=== PATIENT | male | born 1960 | race Caucasian/White ===

== ENCOUNTER 2018-01-29 13:55 | Inpatient (IN) ==
[2018-01-29] MEDS ORDERED: Clindamycin 900 MG/50 ML 900 MG/50 ML IV.SOLN IVPB ONE (14:22)
[2018-01-29] MEDS ORDERED: Ringers Solution, Lactated 1,000 ML IVC SCH ×2 (14:30→19:03)
--- NOTE | 2018-01-29 14:33 | History & Physical Report ---
Date of Encounter: 01/29/18 Time of Encounter: 14:33 24 Hour HP Update - Instructions Instructions: If the History and Physical is less than 30 days old and was completed prior to A.M. admission and or procedure and has NOT been updated on calendar day of procedure please complete this update prior to performing procedure. - Update Patient reports changes in Medical Condition: No Changes in examination, assessment, or condition: No Changes in Medication: No Preop tests/diagnostics Reviewed: Yes Surgery Remains Indicated: Yes Consent for Planned Operative Procedure(s) Verified: Yes - Pre-Operative Checklist Preoperative Checklist Indicated: No Prophylactic Antibiotic Ordered: Yes Is VTE Prophylaxis Indicated?: Yes
[2018-01-29] MEDS ORDERED: *HR* Propofol 200 MG/20 ML VIAL IVP ONE ×2 (15:02→16:31)
[2018-01-29] MEDS ORDERED: *HR* Midazolam HCl 2 MG/2 ML VIAL ONE (15:02)
[2018-01-29] MEDS ORDERED: *HR* FentaNYL (PF) 100 MCG/2 ML VIAL ONE ×2 (15:02→16:58)
--- NOTE | 2018-01-29 15:16 | Anesthesia Evaluation PreOp ---
Date of Encounter: 01/29/18 Time of Encounter: 15:15 - Past History Planned Operation: Rt TKA Cardiac History: HTN, Hyperlipidemia Pulmonary History: Denies Any Significant HX MALE INFERTILITY SPECIALIST History: Denies Any Significant HX Other Medical History: Diabetes Type II, Other ([place]) Anesthesia History: No Prior Anesthetic Complications Alcohol Use: none Drug use: none Medications and Allergies Amlodipine Besylate 10 mg PO DAILY 01/29/18 [History] Atorvastatin Calcium [Lipitor] 80 mg PO HS 01/29/18 [History] Hydrochlorothiazide [Microzide] 12.5 mg PO DAILY 01/29/18 [History] Insulin Glargine,Hum.rec.anlog [Basaglar Kwikpen U-100] 30 unit SQ HS 01/29/18 [History] Losartan Potassium 100 mg PO DAILY 01/29/18 [History] Meloxicam 15 mg PO DAILY 01/29/18 [History] Metformin HCl [Glucophage] 1,000 mg PO BID 01/29/18 [History] Omeprazole [PriLOSEC] 20 mg PO DAILY 01/29/18 [History] Pentoxifylline [TRENtal] 400 mg PO TIDWM 01/29/18 [History] glipiZIDE [Glipizide] 10 mg PO DAILY 01/29/18 [History] Allergy/AdvReac Type Severity Reaction Status Date / Time Penicillins [PCN] Allergy Hives Verified 01/29/18 14:21 - Meds/Allergy Pre-op Review Medications Reviewed: Yes Allergies Reviewed: Yes Beta Blockers on Current Med List: No Anesthesia Results - Labs Laboratory Tests 01/24/18 01/24/18 14:00 14:00 Hgb 13.3 Hct 41.2 Plt Count 262 Sodium 135 L Potassium 3.9 BUN 13 Creatinine 0.73 - Imaging EKG: report reviewed (SR) Anesthesia Exam O2 Sat Height 1.96 m Height 1.96 m Weight 168.736 kg Weight 171.004 kg O2 Sat by Pulse Oximetry 94 Vital Signs Temp Pulse Resp BP Pulse Ox 98.3 F 68 16 107/59 94 01/29/18 14:42 01/29/18 14:42 01/29/18 14:42 01/29/18 14:42 01/29/18 14:42 Height: 6'5 Weight: 372 lbs NPO (# of Hours): MN Pain Scale: 0 - HEENT Pupil (Motor): Pupils equal, EOMI Mallampati: III Teeth: Normal Oral Opening: Less than or equal to 3 - MALE INFERTILITY SPECIALIST LOC: Oriented MALE INFERTILITY SPECIALIST Motor: Normal RUE, Normal LUE, Normal RLE, Normal LLE, Normal Face MALE INFERTILITY SPECIALIST Sensory: Normal: RUE, LUE, RLE, LLE, Face - Cardiac Rhythm: Regular Murmur: None JVD: No Carotid Bruit: No - Pulmonary Breath Sounds: bilateral Clear Respiratory Effort: Symmetrical Anesthesia Assess/Plan ASA Score: 3 Level of consciousness: Cooperative Anesthetic Plan: General, Regional Nerve Block Regional Nerve Block Plan: Adductor canal, IPACK, Other (PAYTON) Autologous Blood: No Monitoring Plan: Standard Monitors Recovery Plan: PACU (Discussed GA, RA, agrees to proceed)
[2018-01-29] MEDS ORDERED: Pregabalin 75 MG CAPSULE PO ONE (15:18)
[2018-01-29] MEDS ORDERED: Acetaminophen IV 1,000 MG/100 ML INFUS..BTL IVPB ONE (15:18)
[2018-01-29] MEDS ORDERED: Celecoxib 100 MG CAPSULE PO ONE (15:19)
[2018-01-29] MEDS ORDERED: Lidocaine -MPF 2% 2 ML VIAL ONE (15:27)
[2018-01-29] MEDS: Famotidine 20 MG/2 ML VIAL IVP ONE ×2 (15:32→15:43)
[2018-01-29] MEDS ORDERED: Tetracaine/PF 20 MG/2 ML AMPUL ONE (15:55)
[2018-01-29] MEDS ORDERED: ROPIVACAINE HCL/PF 0.5% 30 ML VIAL ONE (15:55)
[2018-01-29] MEDS ORDERED: Ethanol\\Acetic Acid\\Na Ace\\Ben 1,000 ML IRRIG.SOLN IR ONE (16:11)
--- NOTE | 2018-01-29 16:19 | Discharge Summary ---
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 Qualifiers: Encounter type: subsequent encounter Qualified Code(s): T84.038D - Mechanical loosening of other internal prosthetic joint, subsequent encounter; Z96.659 - Presence of unspecified artificial knee joint (2) Status post total right knee replacement Priority: Primary Status: Acute (3) HTN (hypertension) Priority: Secondary Status: Chronic Qualifiers: Hypertension type: unspecified Qualified Code(s): I10 - Essential (primary) hypertension (4) Diabetes mellitus Priority: Secondary Status: Chronic Qualifiers: Diabetes mellitus type: other specified (including MIRELLA) Diabetes mellitus exterminator insulin use: with long-term use Diabetes mellitus complication status: with unspecified complications Qualified Code(s): E13.8 - Other specified diabetes mellitus with unspecified complications; Z79.4 - group home (current) use of insulin (5) Obesity Priority: Secondary Status: Chronic Qualifiers: Obesity type: unspecified obesity type Obesity classification: adult class 3 (BMI >= 40) Serious obesity comorbidity presence: unspecified whether serious comorbidity present Body mass index: BMI 40.0-44.9 Qualified Code(s): E66.01 - Morbid (severe) obesity due to excess calories; Z68.41 - Body mass index (BMI) 40.0-44.9, adult (6) HLD (hyperlipidemia) Priority: Secondary Status: Chronic Qualifiers: Hyperlipidemia type: unspecified Qualified Code(s): E78.5 - Hyperlipidemia, unspecified - Hospital Course Hospital course: Mr. Gold is a 57 year old male - Time Spent with Patient Total time spent providing and/or coordinating discharge services: - Discharge Medications Prescriptions: Docusate [Colace] 100 mg PO BID 5 Days #10 capsule Home Medications: Amlodipine Besylate 10 mg PO DAILY 01/29/18 [History] Aspirin Enteric Coated [Aspirin EC] 325 mg PO BID 10 Days #20 tablet. 01/29/18 [Rx] Atorvastatin Calcium [Lipitor] 80 mg PO HS 01/29/18 [History] Hydrochlorothiazide [Microzide] 12.5 mg PO DAILY 01/29/18 [History] Insulin Glargine,Hum.rec.anlog [Basaglar Kwikpen U-100] 30 unit SQ HS 01/29/18 [History] Losartan Potassium 100 mg PO DAILY 01/29/18 [History] Metformin HCl [Glucophage] 1,000 mg PO BID 01/29/18 [History] Omeprazole [PriLOSEC] 20 mg PO DAILY 01/29/18 [History] OxyCODONE Immed Rel [Roxicodone 5 MG] 5 mg PO Q6HR PRN 7 Days #28 tablet 01/29/18 [Rx] Pentoxifylline [TRENtal] 400 mg PO TIDWM 01/29/18 [History] glipiZIDE [Glipizide] 10 mg PO DAILY 01/29/18 [History] Docusate [Colace] 100 mg PO BID 5 Days #10 capsule 01/30/18 [Rx] Allergies/Adverse Reactions: Allergy/AdvReac Type Severity Reaction Status Date / Time Penicillins [PCN] Allergy Hives Verified 01/29/18 14:21 Primary care physician: Catalina Kowalski MD Labs on day of discharge: Labs from last 24 hours 01/29/18 14:38 POC Glucose 153 H - Patient Status Disposition: Transfer SNF Condition: Good - Discharge Instructions Follow Up With: Catalina Kowalski MD [Primary Care Provider] - <Deepthi Cortez - Last Filed: 01/31/18 13:13> Orders not resulted at time of discharge: Pending orders 01/29/18 15:19 US anesthesia pain block [US] Routine 01/29/18 17:00 Culture,Anaerobic [RM] Routine Culture,Wound [RM] Routine 01/29/18 17:34 Surgical Pathology [PTH] Routine Date of Encounter: 01/31/18 Time of Encounter: 12:30 - Discharge Diagnosis (1) Status post total right knee replacement Priority: Primary Status: Acute (2) 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 Qualifiers: Encounter type: subsequent encounter Qualified Code(s): T84.038D - Mechanical loosening of other internal prosthetic joint, subsequent encounter; Demian96.659 - Presence of unspecified artificial knee joint (3) Diabetes mellitus Priority: Secondary Status: Chronic Qualifiers: Diabetes mellitus type: other specified (including MIRELLA) Diabetes mellitus long-term insulin use: with long-term use Diabetes mellitus complication status: with unspecified complications Qualified Code(s): E13.8 - Other specified diabetes mellitus with unspecified complications; Z79.4 - group home (current) use of insulin (4) HLD (hyperlipidemia) Priority: Secondary Status: Chronic Qualifiers: Hyperlipidemia type: unspecified Qualified Code(s): E78.5 - Hyperlipidemia, unspecified (5) HTN (hypertension) Priority: Secondary Status: Chronic Qualifiers: Hypertension type: unspecified Qualified Code(s): I10 - Essential (primary) hypertension (6) Obesity Priority: Secondary Status: Chronic Qualifiers: Obesity type: unspecified obesity type Obesity classification: adult class 3 (BMI >= 40) Serious obesity comorbidity presence: unspecified whether serious comorbidity present Body mass index: BMI 40.0-44.9 Qualified Code(s): E66.01 - Morbid (severe) obesity due to excess calories; Z68.41 - Body mass index (BMI) 40.0-44.9, adult - Hospital Course Hospital course: Mr. Gold is a 57 year old male s/p Right revision total knee 01/29/18 with history of HTN, DM, obesity, HLD. He had uneventful hospital course and participated in therapy. He is stable for discharge. Patient seen at bedside, without complaints. A&O x 3 Afebrile, vital signs stable. Dressings c/d/i with minimal drainage - no change from yesterday. Will have dressings changed today. No calf tenderness to palpation. Labs reviewed. H/H - 10.8/33.6 stable, asymptomatic Pain control: adequate Participating in PT. All questions and concerns addressed. Educated on use of incentive spirometer. Encouraged ambulation and proper hydration. Patient educated on post-operative restrictions and post-operative care. Assessment and plan: Continue with postoperative care [facility] - Time Spent with Patient Total time spent providing and/or coordinating discharge services: Date of admission: 01/29/18 18:40 Primary care physician: Catalina Kowalski MD Consults: 01/29/18 19:03 Consult to Occupational Therapy [CONS] Routine Comment: Evaluate, develop and implement POC Reason for Consult: post knee surgery Does patient have active BEDREST order?: No Is patient medically & hemodynamically stable?: Yes Consult to Orthopedic Navigator [CONS] [CONS] Routine Consult to Physical Therapy [CONS] Routine Comment: Evaluate, develop and impliment POC Reason for Consult: post knee surgery Does patient have active BEDREST order?: No Is patient medically & hemodynamically stable?: Yes Consult to Weigher Packing [CONS] Routine Reason for SW Consult: post op joint replacement RT Post Op Consult [CONS] Routine Discharging clinician: Emilio Crane Anticipated date of discharge: 01/31/18 Labs on day of discharge: Labs from last 24 hours 01/31/18 01/31/18 01/31/18 07:23 04:55 04:55 Hgb 10.8 L Hct 33.6 L Sodium 135 L Potassium 3.8 Chloride 103 Carbon Dioxide 25 BUN 17 Creatinine 0.72 Est GFR ( Amer) > 60 Est GFR (Non-Af Amer) > 60 BUN/Creatinine Ratio 24 Glucose 200 H POC Glucose 202 H Calculated Osmolality 287 Calcium 8.0 L 01/30/18 01/30/18 01/30/18 20:06 16:05 11:56 Hgb Hct Sodium Potassium Chloride Carbon Dioxide BUN Creatinine Est GFR ( Amer) Est GFR (Non-Af Amer) BUN/Creatinine Ratio Glucose POC Glucose 226 H 191 H 210 H Calculated Osmolality Calcium 01/30/18 07:51 Hgb Hct Sodium Potassium Chloride Carbon Dioxide BUN Creatinine Est GFR ( Amer) Est GFR (Non-Af Amer) BUN/Creatinine Ratio Glucose POC Glucose 234 H Calculated Osmolality Calcium Preliminary micro results at discharge 01/29/18 17:00 Wound Culture - Preliminary Right Knee No growth. - Impressions ITS Impressions Knee X-Ray 01/29/18 09:44 IMPRESSION: Postsurgical changes from revision right total knee arthroplasty. D/ / 01/30/2018 08:28:07 Jyotsna Collado MD / adriana Interpreting Provider: Jyotsna Collado MD - Patient Status Functional capacity at discharge: uses cane/walker Overall status at discharge: patient is back to baseline - Diet and Activity Activity: as per physical therapy Diet: advance to your usual diet
[2018-01-29] MEDS ORDERED: *HR* Succinylcholine 200 MG/10 ML VIAL IVP ONE (16:31)
[2018-01-29] MEDS ORDERED: Tranexamic Acid 1,000 MG/10 ML VIAL ONE (17:04)
[2018-01-29] MEDS ORDERED: Dexamethasone 4 MG/ML VIAL ONE (17:06)
[2018-01-29] MEDS ORDERED: Ondansetron 4 MG/2 ML VIAL ONE (17:06)
[2018-01-29] MEDS ORDERED: *HR* Morphine 10 MG/ML VIAL ONE (17:10)
[2018-01-29] MEDS ORDERED: *HR* OxyCODONE Immed Rel 5 MG TABLET PO PRN (17:18)
[2018-01-29] MEDS ORDERED: Ondansetron 4 MG/2 ML VIAL IVP ONE (17:18)
--- NOTE | 2018-01-29 17:50 | Orthopedic Operative Note ---
Date of procedure: 01/29/18 Pre-op diagnosis: Aseptic loosening right total knee Post-op diagnosis: same Procedure: Procedure: Right revision total knee Estimated blood loss: 300 Hardware: Metal and polyethylene replacement. Biomet SSK femur: 75, 24 x 80 stem Tibia: 83, 16 x 80 stem Constrained Shawna: 10 Exam Under anesthesia: Full flexion and extension well-healed incision mid flexion varus valgus instability Procedural Notes: Gross loosening tibial component significant cement reaction disease. Operative procedure: The patient was brought to the operating room and placed on the operating room table. After general anesthesia was administered the operative knee was examined. Findings were noted in the exam under anesthesia. The operative extremity was prepped and draped in sterile surgical fashion. The patient received IV antibiotics prior to skin incision. A standard midline incision was made centered over the patella through the old incision. The incision was made through the skin and subcutaneous tissue. A medial parapatellar tendon approach was performed. Care was taken to preserve tissue along the medial aspect of the patella. And to protect the patella tendon. The deep MCL was released off the medial tibia. The infra patella fat pad was excised. Fluid was encountered this was normal joint fluid, Cultures were obtained and gram . Patient noted to have significant cement synovial reaction this was excised. The knee was brought into flexion the poly-was removed. The interface between the patient's femoral component and distal femur were disrupted with a osteotome and oscillating saw. Femoral component was removed removed without significant bone loss. Attention was then turned to the tibial component. The same technique was used to remove the tibial component by disrupting the interface between the patient's tibial component and the patients proximal tibia. The tibial component was loose, was removed without significant bone loss. The tibia was sized to a m 83 it was reamed up to a 16 x 80 stem Trial had good fit and fixation. The femur was sized to a 75, was reamed up to a 24 x 80 stem The finishing guide was seated and the box cut was made. The trial had good fit and fixation. Both trial components were seated and the X constrained Shawna was seated and secured. The knee had full flexion and full extension with no instability. Patella had excellent patella tracking. The trial components were removed. The knee sat for 2 minutes with a antibacterial solution. It was irrigated out with 2 L of pulse irrigation. The components were assembled on the back table, the tibia cemented first followed by the femur. The 10 constrained liner was seated and secure. The knee was brought to full extension while the cement hardened. After the cement hardened the knee was irrigated out again. The extensor mechanism was closed with a running #2 Fiberwire suture and a running #2 PDS suture. The deep tissue was irrigated and closed deep with #1 PDS suture superficially with 0 PDS suture. The skin was closed with skin dieudonne. The patient was placed in a sterile dressing and postoperative brace. They were extubated and transferred to recovery room in stable condition. Anesthesia: GETA Surgeon: Emilio Crane Was there an first assistant manager present: No Estimated blood loss (cc): 300 Condition: stable Disposition: PACU
[2018-01-29] MEDS ORDERED: *HR* Enoxaparin 30 MG/0.3 ML SYRINGE SQ SCH (18:00)
[2018-01-29] MEDS: *HR* HYDROmorphone (PF) 1 MG/ML SYRINGE IVP PRN ×2 (18:20→18:25)
[2018-01-29 18:50] LABS: Hematocrit 35.9 % (37.5-50.1)
[2018-01-29 18:52] LABS: Hemoglobin 11.7 g/dL (12.9-16.9)
[2018-01-29] MEDS ORDERED: Sennosides 8.6 MG TABLET PO PRN (19:03)
[2018-01-29] MEDS ORDERED: Naloxone 0.4 MG/ML INJ IVP PRN (19:03)
[2018-01-29] MEDS ORDERED: Temazepam 15 MG CAPSULE PO PRN (19:03)
[2018-01-29] MEDS ORDERED: *HR* OxyCODONE/APAP 5/325 TABLET PO PRN (19:03)
[2018-01-29] MEDS ORDERED: MOM Conc 10 ML UD.LIQ PO PRN (19:03)
[2018-01-29] MEDS ORDERED: Ondansetron 4 MG/2 ML VIAL IVP PRN (19:03)
--- NOTE | 2018-01-29 19:30 | Anesthesia Evaluation Post Op ---
Date of Encounter: 01/29/18 Time of Encounter: 19:28 - Vital Signs Vital Signs: Vital Signs/O2 Sat, Most Current Temp Pulse Resp BP Pulse Ox 98.5 F 63 16 126/71 93 01/29/18 19:00 01/29/18 19:00 01/29/18 19:00 01/29/18 19:00 01/29/18 19:00 - Lungs Lungs: Clear Ascult./Percussion - Airway Airway: Non-obstructed - Cardiovascular Regular Rate - Mental Status Mental Status: Alert & Oriented, Answers Appropriately - Pain Pain Scale: 0 Pain Scale used: Numeric (1 - 10) - Nausea Vomiting Nausea Vomiting: Not Present - Hydration Hydration: Ice chips - Discharge PostOp Status: Transfer Patient to floor
[2018-01-29] MEDS ORDERED: D5% in Water 1,000 ML IVC PRN (19:39)
[2018-01-29] MEDS ORDERED: Dextrose Gel 15 GM/37.5 ML TUBE PO PRN ×2 (19:39)
[2018-01-29] MEDS ORDERED: *HR* Dextrose 50 % in Water (Syg) 50 ML SYRINGE IVP PRN (19:39)
[2018-01-29] MEDS: *HR* OxyCODONE Immed Rel 5 MG TABLET PO PRN (20:12)
[2018-01-29] MEDS: *HR* Metformin 500 MG TABLET PO SCH (20:12)
[2018-01-29] MEDS: Insulin DETEMIR 100 UNIT/ML X5UNITS SQ SCH (20:13)
[2018-01-29] MEDS ORDERED: NON-FORMULARY MEDICATION 1 EACH EACH (Insulin Glargine,Hum.Rec.Anlog [Basaglar Kwikpen U-1 SQ SCH (21:00)
[2018-01-29] MEDS: Clindamycin 900 MG/50 ML 900 MG/50 ML IV.SOLN IVPB SCH (22:31)
[2018-01-30] MEDS: *HR* OxyCODONE Immed Rel 5 MG TABLET PO PRN ×5 (02:56→22:39)
[2018-01-30] MEDS: Clindamycin 900 MG/50 ML 900 MG/50 ML IV.SOLN IVPB SCH (05:47)
[2018-01-30] MEDS: *HR* Enoxaparin 30 MG/0.3 ML SYRINGE SQ SCH ×2 (05:47→17:01)
[2018-01-30 06:32] LABS: Hematocrit 35.9 % (37.5-50.1); Hemoglobin 11.6 g/dL (12.9-16.9)
--- NOTE | 2018-01-30 06:43 | Orthopedics Progress Note ---
Date of Encounter: 01/30/18 Time of Encounter: 06:43 Subjective Interval history: Patient was seen this morning doing well without complaints. Afebrile vital signs stable. Operative extremity: Neurovascularly intact Dressing clean dry and intact Calves nontender Assessment and plan: Continue with postoperative care Hematocrit 35 Gram stain no bacteria Objective Vital signs: Vital Signs Temp Pulse Resp BP Pulse Ox 01/30/18 06:41 98.7 F 76 16 120/73 95 01/30/18 05:05 98.1 F 66 18 134/76 94 01/29/18 22:30 98.6 F 68 18 121/75 94 01/29/18 21:26 98.5 F 66 16 114/71 95 01/29/18 20:17 98.8 F 62 16 150/78 94 01/29/18 19:32 98.4 F 63 16 116/76 92 01/29/18 19:00 98.5 F 63 16 126/71 93 01/29/18 18:45 98.1 F 61 16 120/73 97 01/29/18 18:35 98.1 F 61 16 104/53 95 01/29/18 18:25 64 16 123/73 97 01/29/18 18:15 64 16 145/76 94 01/29/18 18:05 98.4 F 69 16 150/86 94 01/29/18 16:40 64 124/76 96 01/29/18 16:30 64 139/79 94 01/29/18 16:16 65 128/84 95 01/29/18 16:05 68 128/84 94 01/29/18 15:55 66 131/71 94 01/29/18 14:42 98.3 F 68 16 107/59 94 Intake and Output 01/29/18 01/29/18 01/30/18 15:59 23:59 07:59 Intake Total 50 / 50 Output Total 650 / 650 325 / 325 Balance -600 / -600 -325 / -325 Intake: IV Fluids 50 / 50 Cleocin Premix 900 MG/50 ML 900 50 / 50 mg In 50 ml @ 50 mls/hr IVPB Q8H [facility] Rx#:[id number] Output: Urine 450 / 450 325 / 325 Estimated Blood Loss 200 / 200 Other: Weight 168.736 kg Blood Glucose* 153 169 - Labs CBC & BMP: 01/30/18 05:44 Labs: Abnormal lab results Hgb 11.6 g/dL (12.9-16.9) L 01/30/18 05:44 Hct 35.9 % (37.5-50.1) L 01/30/18 05:44 POC Glucose 153 mg/dL (70-99) H 01/29/18 14:38 - VTE Documentation of Mechanical Device: Venous foot pump, device Consult Discharge Plan - Plan Referrals: Catalina Kowaslki MD [Primary Care Provider] -
[2018-01-30 07:01] LABS: BUN/Creatinine Ratio 20 (6-26); Blood Urea Nitrogen 13 mg/dL (6-20); Calcium 8.3 mg/dL (8.6-10.3); Carbon Dioxide 21 mEq/L (23-29); Chloride 102 mEq/L (98-107); Glucose 227 mg/dL (70-105); Osmolality,Calculated 283 (280-300); Potassium 4.3 mEq/L (3.5-5.1); Sodium 133 mEq/L (136-145); eGFR For Non-African Americans > 60 (> 60)
[2018-01-30] MEDS: hydroCHLOROthiazide 25 MG TABLET PO SCH (08:17)
[2018-01-30] MEDS: *HR* Metformin 500 MG TABLET PO SCH ×2 (08:17→16:57)
[2018-01-30] MEDS: *HR* GlipiZIDE 5 MG TABLET PO SCH (08:17)
[2018-01-30] MEDS: amLODIPine 5 MG TABLET PO SCH (08:17)
[2018-01-30] MEDS: Insulin LISPRO 300 UNITS/3 ML VIAL SQ SCH ×3 (08:18→16:58)
--- NOTE | 2018-01-30 11:31 | Physician Discharge Referral ---
ExtendedCare Referral Info Transfer To: [facility] Provider in Charge: Dr. 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 (2) Status post total right knee replacement Priority: Primary Status: Acute (3) HTN (hypertension) Priority: Secondary Status: Chronic (4) Diabetes mellitus Priority: Secondary Status: Chronic (5) Obesity Priority: Secondary Status: Chronic (6) HLD (hyperlipidemia) Priority: Secondary Status: Chronic Expected Duration of Placement: less than 30 days Prognosis: Good Aware of Diagnosis: Patient Aware of Prognosis: Patient - Transfer Medications Prescriptions: OxyCODONE Immed Rel [Roxicodone 5 MG] 5 mg PO Q6HR PRN 7 Days #28 tablet PRN Reason: Severe Pain Aspirin Enteric Coated [Aspirin EC] 325 mg PO BID 10 Days #20 tablet.dr Cali [Colace] 100 mg PO BID 5 Days #10 capsule Home Medications: Amlodipine Besylate 10 mg PO DAILY 01/29/18 [History] Aspirin Enteric Coated [Aspirin EC] 325 mg PO BID 10 Days #20 tablet. 01/29/18 [Rx] Atorvastatin Calcium [Lipitor] 80 mg PO HS 01/29/18 [History] Hydrochlorothiazide [Microzide] 12.5 mg PO DAILY 01/29/18 [History] Insulin Glargine,Hum.rec.anlog [Basaglar Kwikpen U-100] 30 unit SQ HS 01/29/18 [History] Losartan Potassium 100 mg PO DAILY 01/29/18 [History] Metformin HCl [Glucophage] 1,000 mg PO BID 01/29/18 [History] Omeprazole [PriLOSEC] 20 mg PO DAILY 01/29/18 [History] OxyCODONE Immed Rel [Roxicodone 5 MG] 5 mg PO Q6HR PRN 7 Days #28 tablet 01/29/18 [Rx] Pentoxifylline [TRENtal] 400 mg PO TIDWM 01/29/18 [History] glipiZIDE [Glipizide] 10 mg PO DAILY 01/29/18 [History] Aspirin Enteric Coated [Aspirin EC] 325 mg PO BID 10 Days #20 tablet. 01/30/18 [Rx] Docusate [Colace] 100 mg PO BID 5 Days #10 capsule 01/30/18 [Rx] OxyCODONE Immed Rel [Roxicodone 5 MG] 5 mg PO Q6HR PRN 7 Days #28 tablet 01/30/18 [Rx] Allergies/Adverse Reactions: Allergy/AdvReac Type Severity Reaction Status Date / Time Penicillins [PCN] Allergy Hives Verified 01/29/18 14:21 - Respiratory Orders Smoking Cessation: Smoking cessation has been advised. For more information, call the [employer] Quit Line at 5-346-ZVSS-NOW. - Ancillary Orders May use pressure relief devices daily prn, May go on ESE w/family/respon republican w/meds at nurse discretion PRN, May consult with Dentist, Hoop Rolls Operator, First Grade Teacher PRN - Mobility Orders Chair, Ambulate - Rehabiliation Orders Rehab Potential: Good Rehab Orders: Evaluation for Physical Therapy, Evaluation for Occupational Therapy Other: Total Knee replacement Precautions x 6 weeks Apply cold therapy wrap 3-6x/day for 20 minutes at a time. Encourage ambulation throughout the day and incentive spirometer 10x/hour. Elevate affected extremity above heart as tolerated. Brace: Wear knee immobilizer at night x 2 weeks. - Treatments Skin tear care topically daily PRN per policy, Fleet enema rectally every other day PRN cleansing purposes List/Other: Opsite placed. Keep dressing intact until first follow up appointment. If greater than 50% saturated, notify office, remove dressing and place appropriate dressing back in place. Leave Desiree and Zipline intact. Opsite dressing is water resistant, not water-proof. OK to shower, but do not get dressing wet. - Diet Orders Regular CERTIFICATION: I certify that the transfer of the above named patient to an Extended Care Facility is necessary for the continuing treatment of the diagnosis listed. The above information is true and accurate reflection of patient's current condition. Confidential - Redisclosure prohibited without a patient's written consent.
--- NOTE | 2018-01-30 17:58 | Event Note ---
Date of Encounter: 01/30/18 Time of Encounter: 12:50 PCR - POD#1 s/p Right revision total knee 01/29/18 Patient seen at bedside, without complaints. A&O x 3 Afebrile, vital signs stable. Dressings c/d/i with minimal drainage. No calf tenderness to palpation. Labs reviewed. H/H - 11.6/35.9 stable, asymptomatic Pain control: adequate Participating in PT. All questions and concerns addressed. Educated on use of incentive spirometer. Encouraged ambulation and proper hydration. Patient educated on post-operative restrictions and post-operative care. Assessment and plan: Continue with postoperative care Discharge plan: [facility]CF - [facility], pending authorization
[2018-01-30] MEDS: Insulin DETEMIR 100 UNIT/ML X5UNITS SQ SCH (20:25)
[2018-01-30] MEDS: traMADol 50 MG TABLET PO PRN (20:26)
[2018-01-30] MEDS ORDERED: Insulin LISPRO 300 UNITS/3 ML VIAL SQ SCH (21:00)
[2018-01-31] MEDS: *HR* OxyCODONE Immed Rel 5 MG TABLET PO PRN ×2 (03:30→08:32)
[2018-01-31 05:37] LABS: Hematocrit 33.6 % (37.5-50.1); Hemoglobin 10.8 g/dL (12.9-16.9)
[2018-01-31 05:54] LABS: BUN/Creatinine Ratio 24 (6-26); Blood Urea Nitrogen 17 mg/dL (6-20); Carbon Dioxide 25 mEq/L (23-29); Chloride 103 mEq/L (98-107); Glucose 200 mg/dL (70-105); Osmolality,Calculated 287 (280-300); Potassium 3.8 mEq/L (3.5-5.1); Sodium 135 mEq/L (136-145); eGFR For Non-African Americans > 60 (> 60)
[2018-01-31] MEDS: *HR* Enoxaparin 30 MG/0.3 ML SYRINGE SQ SCH (06:11)
[2018-01-31] MEDS: traMADol 50 MG TABLET PO PRN (06:11)
[2018-01-31] MEDS ORDERED: Acetaminophen IV 1,000 MG/100 ML INFUS..BTL IVPB PRN (07:09)
--- NOTE | 2018-01-31 07:56 | Orthopedics Progress Note ---
Date of Encounter: 01/31/18 Time of Encounter: 07:55 Subjective Interval history: Patient was seen this morning plans of pain right knee. Afebrile vital signs stable. Operative extremity: Neurovascularly intact Dressing clean dry and intact Calves nontender Assessment and plan: Continue with postoperative care Hematocrit 33 Objective Vital signs: Vital Signs Temp Pulse Resp BP Pulse Ox 01/31/18 07:21 98.1 F 76 16 134/81 91 01/31/18 03:43 98.1 F 84 18 133/78 91 01/30/18 22:46 98.2 F 74 18 134/73 93 01/30/18 18:46 98.7 F 73 14 117/74 91 01/30/18 16:05 98.4 F 67 16 105/65 95 01/30/18 10:53 98.4 F 69 16 111/69 96 Intake and Output 01/30/18 01/30/18 01/31/18 15:59 23:59 07:59 Intake Total 1120 / 1120 690 / 690 300 / 300 Output Total 725 / 725 550 / 550 1250 / 1250 Balance 395 / 395 140 / 140 -950 / -950 Intake: Oral 1120 / 1120 690 / 690 300 / 300 Output: Urine 725 / 725 550 / 550 1250 / 1250 Other: Meal Lunch Dinner Percent of Meal Consumed 85% 85% Weight 168.737 kg Blood Glucose* 210 226 202 Patient Weight 01/31/18 23:59 Weight 168.737 kg - Labs CBC & BMP: 01/31/18 04:55 01/31/18 04:55 Labs: Abnormal lab results Hgb 10.8 g/dL (12.9-16.9) L 01/31/18 04:55 Hct 33.6 % (37.5-50.1) L 01/31/18 04:55 Sodium 135 mEq/L (136-145) L 01/31/18 04:55 Glucose 200 mg/dL (70-105) H 01/31/18 04:55 POC Glucose 226 mg/dL (70-99) H 01/30/18 20:06 Calcium 8.0 mg/dL (8.6-10.3) L 01/31/18 04:55 - VTE Documentation of Mechanical Device: Venous foot pump, device Consult Discharge Plan - Plan Referrals: Catalina Kowalski MD [Primary Care Provider] - Prescriptions: Aspirin Enteric Coated [Aspirin EC] 325 mg PO BID 10 Days #20 tablet. Docveronica [Colace] 100 mg PO BID 5 Days #10 capsule OxyCODONE Immed Rel [Roxicodone 5 MG] 5 mg PO Q6HR PRN 7 Days #28 tablet PRN Reason: Severe Pain
[2018-01-31] MEDS: amLODIPine 5 MG TABLET PO SCH (08:30)
[2018-01-31] MEDS: *HR* Metformin 500 MG TABLET PO SCH (08:31)
[2018-01-31] MEDS: hydroCHLOROthiazide 25 MG TABLET PO SCH (08:31)
[2018-01-31] MEDS: *HR* GlipiZIDE 5 MG TABLET PO SCH (08:31)
[2018-01-31] MEDS: Insulin LISPRO 300 UNITS/3 ML VIAL SQ SCH ×2 (08:32→12:31)
[2018-01-31 15:01] VITALS: BP 117/73
== END 2018-01-31 16:42 | DRG 467 ==
LOC: SAMDAY 13:55 → 3NENU 18:40
PROVIDERS: ADMIT Orthopaedic Surgery; ATTEND Orthopaedic Surgery

== ENCOUNTER 2019-07-26 17:27 | Inpatient (IN) ==
[2019-07-26] MEDS ORDERED: Naloxone 0.4 MG/ML INJ IVP PRN (20:40)
[2019-07-26 21:50] LABS: Basophils % 0.1 %; Eosinophils # 0.2 K/mcL (0.0-0.6); Eosinophils % 1.4 %; Hematocrit 33.6 % (37.5-50.1); Hemoglobin 10.8 g/dL (12.9-16.9); Immature Granulocytes % 1.1 % (0-4); Lymphocytes # 0.6 K/mcL (0.6-4.6); Lymphocytes % 4.3 %; Mean Corpuscular HGB Conc 32.1 g/dL (31.6-35.5); Mean Corpuscular Hemoglobin 28.3 pg (28.0-33.3); Mean Platelet Volume 9.6 fL (9.4-12.4); Monocytes % 7.6 %; Neutrophils # 11.1 K/mcL (1.6-8.9); Platelet Count 255 K/mcL (140-400); Red Blood Count 3.82 M/mcL (4.19-5.50); Red Cell Distribution Width 13.9 % (11.5-14.5); Segmented Neutrophils % 85.5 %; White Blood Count 12.9 K/mcL (4.3-11.1)
[2019-07-26] MEDS ORDERED: Dextrose Gel 15 GM/37.5 ML TUBE PO PRN ×2 (22:03)
[2019-07-26] MEDS ORDERED: D5% in Water 1,000 ML IVC PRN (22:03)
[2019-07-26] MEDS ORDERED: *HR* Dextrose 50 % in Water (Syg) 50 ML SYRINGE IVP PRN (22:03)
[2019-07-26 22:08] LABS: Calcium 7.3 mg/dL (8.6-10.3); Potassium 3.1 mEq/L (3.5-5.1)
[2019-07-27] MEDS: Insulin LISPRO 300 UNITS/3 ML VIAL SQ SCH ×5 (00:47→20:48)
[2019-07-27] MEDS ORDERED: 0.9 % Sodium Chloride 1,000 ML IVC SCH (01:30)
[2019-07-27 01:56] LABS: INR 1.3; Prothrombin Time 14.4 Seconds (9.4-12.1)
[2019-07-27 01:58] LABS: Basophils % 0.2 %; Eosinophils # 0.1 K/mcL (0.0-0.6); Eosinophils % 0.8 %; Hemoglobin 10.2 g/dL (12.9-16.9); Immature Granulocytes % 0.9 % (0-4); Lymphocytes # 0.5 K/mcL (0.6-4.6); Lymphocytes % 4.2 %; Mean Corpuscular HGB Conc 32.9 g/dL (31.6-35.5); Mean Corpuscular Volume 88.1 fL (83.0-100.0); Mean Platelet Volume 9.7 fL (9.4-12.4); Monocytes % 7.9 %; Neutrophils # 10.6 K/mcL (1.6-8.9); Platelet Count 237 K/mcL (140-400); Red Blood Count 3.52 M/mcL (4.19-5.50); Red Cell Distribution Width 13.9 % (11.5-14.5); White Blood Count 12.3 K/mcL (4.3-11.1)
[2019-07-27 01:59] LABS: Activated Partial Thrombo Time 28.8 Seconds (26.0-36.0)
[2019-07-27 02:09] LABS: Calcium 7.1 mg/dL (8.6-10.3); Potassium 3.3 mEq/L (3.5-5.1)
[2019-07-27] MEDS ORDERED: Potassium Chloride 40 MEQ, Lidocaine 1% 2 ML in 0.9 % Sodium Chloride 500 ML IVPB ONE (04:00)
[2019-07-27] MEDS: *HR* Heparin 5,000 UNIT/ML VIAL SQ SCH ×2 (05:14→17:06)
[2019-07-27] MEDS: Vancomycin 2,000 MG/520 ML IV.SOLN IVPB SCH (05:14)
[2019-07-27] MEDS: Cefepime HCl 2,000 MG in Water for inj. (sterile) 20 ML IVP SCH ×2 (05:14→17:06)
[2019-07-27] MEDS ORDERED: Cefepime HCl 1,000 MG in 0.9 % Sodium Chloride Mini Bag 100 ML IVPB SCH (06:00)
[2019-07-27] MEDS ORDERED: 0.9 % Sodium Chloride 500 ML IVC ONE (08:18)
[2019-07-27] MEDS: 0.9 % Sodium Chloride w KCl 20 MEQ/1,000 ML MLS IVC SCH ×2 (10:47→20:34)
[2019-07-27] MEDS: *HR* OxyCODONE Immed Rel 5 MG TABLET PO PRN (13:01)
[2019-07-27] MEDS: Ipratropium/Albuterol Neb 3 ML IH PRN ×2 (17:42→23:42)
[2019-07-27] MEDS: Insulin DETEMIR 100 UNIT/ML X5UNITS SQ SCH (20:35)
[2019-07-28 01:44] LABS: Basophils % 0.4 %; Eosinophils # 0.2 K/mcL (0.0-0.6); Hematocrit 30.1 % (37.5-50.1); Hemoglobin 9.8 g/dL (12.9-16.9); Immature Granulocytes % 0.8 % (0-4); Lymphocytes % 10.5 %; Mean Corpuscular HGB Conc 32.6 g/dL (31.6-35.5); Mean Corpuscular Hemoglobin 28.5 pg (28.0-33.3); Mean Corpuscular Volume 87.5 fL (83.0-100.0); Mean Platelet Volume 9.3 fL (9.4-12.4); Monocytes % 10.9 %; Neutrophils # 7.1 K/mcL (1.6-8.9); Platelet Count 267 K/mcL (140-400); Red Blood Count 3.44 M/mcL (4.19-5.50); Red Cell Distribution Width 14.4 % (11.5-14.5); Segmented Neutrophils % 75.4 %; White Blood Count 9.4 K/mcL (4.3-11.1)
[2019-07-28 02:06] LABS: Calcium 7.4 mg/dL (8.6-10.3); Potassium 3.4 mEq/L (3.5-5.1)
[2019-07-28 05:27] LABS: Magnesium 1.6 mg/dL (1.6-2.6)
[2019-07-28] MEDS: 0.9 % Sodium Chloride w KCl 20 MEQ/1,000 ML MLS IVC SCH (06:46)
[2019-07-28] MEDS: Cefepime HCl 2,000 MG in Water for inj. (sterile) 20 ML IVP SCH ×2 (06:49→17:54)
[2019-07-28] MEDS: *HR* OxyCODONE Immed Rel 5 MG TABLET PO PRN ×2 (06:50→16:11)
[2019-07-28] MEDS: *HR* Heparin 5,000 UNIT/ML VIAL SQ SCH ×2 (06:50→17:54)
[2019-07-28] MEDS: Vancomycin 2,000 MG/520 ML IV.SOLN IVPB SCH (07:27)
[2019-07-28] MEDS: Insulin LISPRO 300 UNITS/3 ML VIAL SQ SCH ×4 (08:24→22:10)
[2019-07-28 09:36] LABS: Albumin 2.9 g/dL (3.5-5.7); Bilirubin,Direct 0.2 mg/dL (0.0-0.2); Bilirubin,Indirect 0.3 mg/dL (0.0-1.0); Bilirubin,Total 0.5 mg/dL (0.3-1.0); Total Protein 5.9 g/dL (6.4-8.9)
[2019-07-28 11:07] LABS: VBG HCO3 20 mEq/L (21-27); VBG PCO2 32 mmHg (41-51); VBG PO2 223 mmHg (25-50)
[2019-07-28] MEDS: Acetaminophen 325 MG TABLET PO PRN (12:30)
[2019-07-28 15:31] LABS: Acinetobacter baumannii by PCR Not Detected (Not Detect); Candida albicans by PCR Not Detected (Not Detect); Candida glabrata by PCR Not Detected (Not Detect); Candida krusei by PCR Not Detected (Not Detect); Candida parapsilosis by PCR Not Detected (Not Detect); Candida tropicalis by PCR Not Detected (Not Detect); Enterobacter cloacae Cmplx PCR Not Detected (Not Detect); Enterobacteriaceae by PCR Not Detected (Not Detect); Enterococcus by PCR Not Detected (Not Detect); Escherichia coli by PCR Not Detected (Not Detect); Klebsiella oxytoca by PCR Not Detected (Not Detect); Klebsiella pneumoniae by PCR Not Detected (Not Detect); Proteus by PCR Not Detected (Not Detect); Pseudomonas aeruginosa by PCR Not Detected (Not Detect); Serratia marcescens by PCR Not Detected (Not Detect); Staphylococcus aureus by PCR DETECTED (Not Detect); Streptococcus agalactiae(B)PCR Not Detected (Not Detect); Streptococcus by PCR Not Detected (Not Detect); Streptococcus pneumoniae PCR Not Detected (Not Detect); Streptococcus pyogenes (A) PCR Not Detected (Not Detect); mecA Methicillin-Resist Gene Not Detected (Not Detect)
[2019-07-28] MEDS ORDERED: Calcium Gluconate 1gm/50mL 1 GM/50 ML BAG IVPB ONE (15:37)
[2019-07-28 17:58] LABS: Adenovirus Not Detected (Not Detect); Bordetella Pertussis Not Detected (Not Detect); Chlamydophila pneumoniae Not Detected (Not Detect); Coronavirus 229E Not Detected (Not Detect); Coronavirus HKU1 Not Detected (Not Detect); Coronavirus NL63 Not Detected (Not Detect); Coronavirus OC43 Not Detected (Not Detect); Human Metapneumovirus Not Detected (Not Detect); Human Rhinovirus/Enterovirus Not Detected (Not Detect); Influenza A Subtype 2009 H1 Not Detected (Not Detect); Influenza B Not Detected (Not Detect); Mycoplasma pneumoniae Not Detected (Not Detect); Parainfluenza Virus 1 Not Detected (Not Detect); Parainfluenza Virus 2 Not Detected (Not Detect); Parainfluenza Virus 3 Not Detected (Not Detect); Parainfluenza Virus 4 Not Detected (Not Detect); Respiratory Syncytial Virus Not Detected (Not Detect)
[2019-07-28] MEDS: Insulin DETEMIR 100 UNIT/ML X5UNITS SQ SCH (22:09)
[2019-07-29] MEDS ORDERED: Ondansetron 4 MG/2 ML VIAL IVP PRN (00:11)
[2019-07-29 05:39] LABS: Hematocrit 32.6 % (37.5-50.1); Hemoglobin 10.6 g/dL (12.9-16.9); Mean Corpuscular HGB Conc 32.5 g/dL (31.6-35.5); Mean Corpuscular Volume 89.1 fL (83.0-100.0); Mean Platelet Volume 9.4 fL (9.4-12.4); Platelet Count 293 K/mcL (140-400); Red Blood Count 3.66 M/mcL (4.19-5.50); Red Cell Distribution Width 14.6 % (11.5-14.5); White Blood Count 10.3 K/mcL (4.3-11.1)
[2019-07-29 05:48] LABS: BUN/Creatinine Ratio 24 (6-26); Blood Urea Nitrogen 24 mg/dL (8-23); Calcium 8.4 mg/dL (8.6-10.3); Carbon Dioxide 21 mEq/L (23-29); Chloride 106 mEq/L (98-107); Glucose 190 mg/dL (70-105); Magnesium 1.8 mg/dL (1.6-2.6); Osmolality,Calculated 287 (280-300); Phosphorous 2.8 mg/dL (2.7-4.5); Potassium 4.2 mEq/L (3.5-5.1); Sodium 134 mEq/L (136-145); eGFR For African Americans > 60 (> 60); eGFR For Non-African Americans > 60 (> 60)
[2019-07-29 05:51] LABS: Albumin 2.8 g/dL (3.5-5.7); Albumin/Globulin Ratio 0.9 (1.1-2.2); Bilirubin,Direct 0.2 mg/dL (0.0-0.2); Bilirubin,Indirect 0.5 mg/dL (0.0-1.0); Bilirubin,Total 0.7 mg/dL (0.3-1.0); Globulin 3.2 g/dL (2.4-3.5)
[2019-07-29] MEDS: *HR* Heparin 5,000 UNIT/ML VIAL SQ SCH ×2 (06:20→16:41)
[2019-07-29] MEDS: Cefepime HCl 2,000 MG in Water for inj. (sterile) 20 ML IVP SCH (06:20)
[2019-07-29] MEDS: *HR* OxyCODONE Immed Rel 5 MG TABLET PO PRN ×3 (06:22→18:30)
[2019-07-29] MEDS: Vancomycin 1,500 MG/265 ML IV.SOLN IVPB SCH ×2 (07:22→16:42)
[2019-07-29] MEDS: Insulin LISPRO 300 UNITS/3 ML VIAL SQ SCH ×4 (08:30→21:54)
[2019-07-29] MEDS ORDERED: Perflutren Lipid Microsphere 1.3 ML in 0.9 % Sodium Chloride 8.7 ML IVP ONE (09:09)
[2019-07-29] MEDS ORDERED: Cefepime HCl 2,000 MG in Water for inj. (sterile) 20 ML IVP SCH (16:00)
[2019-07-29] MEDS: Insulin DETEMIR 100 UNIT/ML X5UNITS SQ SCH (22:53)
[2019-07-30] MEDS: *HR* OxyCODONE Immed Rel 5 MG TABLET PO PRN ×4 (00:25→21:25)
[2019-07-30] MEDS ORDERED: Cefepime HCl 2,000 MG in Water for inj. (sterile) 20 ML IVP SCH (04:15)
[2019-07-30] MEDS: *HR* Heparin 5,000 UNIT/ML VIAL SQ SCH ×2 (06:09→16:30)
[2019-07-30] MEDS: Vancomycin 1,500 MG/265 ML IV.SOLN IVPB SCH (06:10)
[2019-07-30 06:27] LABS: Hematocrit 31.4 % (37.5-50.1); Mean Corpuscular HGB Conc 31.8 g/dL (31.6-35.5); Mean Corpuscular Hemoglobin 28.9 pg (28.0-33.3); Mean Corpuscular Volume 90.8 fL (83.0-100.0); Mean Platelet Volume 9.5 fL (9.4-12.4); Platelet Count 315 K/mcL (140-400); Red Blood Count 3.46 M/mcL (4.19-5.50); Red Cell Distribution Width 14.6 % (11.5-14.5); White Blood Count 9.5 K/mcL (4.3-11.1)
[2019-07-30 06:47] LABS: BUN/Creatinine Ratio 22 (6-26); Blood Urea Nitrogen 21 mg/dL (8-23); Calcium 8.4 mg/dL (8.6-10.3); Carbon Dioxide 24 mEq/L (23-29); Chloride 104 mEq/L (98-107); Glucose 187 mg/dL (70-105); Osmolality,Calculated 288 (280-300); Potassium 4.1 mEq/L (3.5-5.1); Sodium 135 mEq/L (136-145); eGFR For African Americans > 60 (> 60); eGFR For Non-African Americans > 60 (> 60)
[2019-07-30] MEDS: Insulin LISPRO 300 UNITS/3 ML VIAL SQ SCH ×4 (09:29→21:25)
[2019-07-30] MEDS ORDERED: Aminoglycoside Consult 1 EACH MC ONE (10:10)
[2019-07-30] MEDS ORDERED: Isovue-370 500 ML BOTTLE IVP ONE (11:07)
[2019-07-30] MEDS: ceFAZolin 2,000 MG in 0.9 % Sodium Chloride 100 ML IVPB SCH ×2 (15:56→23:00)
[2019-07-30] MEDS: Acetaminophen 325 MG TABLET PO PRN (16:38)
[2019-07-30] MEDS: Insulin DETEMIR 100 UNIT/ML X5UNITS SQ SCH (21:25)
[2019-07-31] MEDS: *HR* Heparin 5,000 UNIT/ML VIAL SQ SCH ×2 (05:25→17:35)
[2019-07-31] MEDS ORDERED: Total Joint Mixture (50 ml) INTRAART ONE (06:00)
[2019-07-31 06:50] LABS: Basophils # 0.1 K/mcL (0.0-0.2); Basophils % 0.4 %; Eosinophils # 0.3 K/mcL (0.0-0.6); Eosinophils % 2.8 %; Hematocrit 31.9 % (37.5-50.1); Hemoglobin 10.3 g/dL (12.9-16.9); Immature Granulocytes % 3.9 % (0-4); Lymphocytes # 1.2 K/mcL (0.6-4.6); Lymphocytes % 10.8 %; Mean Corpuscular HGB Conc 32.3 g/dL (31.6-35.5); Mean Corpuscular Volume 89.9 fL (83.0-100.0); Mean Platelet Volume 9.7 fL (9.4-12.4); Neutrophils # 8.2 K/mcL (1.6-8.9); Platelet Count 341 K/mcL (140-400); Red Blood Count 3.55 M/mcL (4.19-5.50); Red Cell Distribution Width 14.5 % (11.5-14.5); Segmented Neutrophils % 73.1 %; White Blood Count 11.3 K/mcL (4.3-11.1)
[2019-07-31 07:10] LABS: BUN/Creatinine Ratio 22 (6-26); Blood Urea Nitrogen 19 mg/dL (8-23); Calcium 8.4 mg/dL (8.6-10.3); Carbon Dioxide 23 mEq/L (23-29); Chloride 104 mEq/L (98-107); Glucose 198 mg/dL (70-105); Magnesium 1.5 mg/dL (1.6-2.6); Osmolality,Calculated 286 (280-300); Phosphorous 3.7 mg/dL (2.7-4.5); Sodium 134 mEq/L (136-145); eGFR For African Americans > 60 (> 60); eGFR For Non-African Americans > 60 (> 60)
[2019-07-31] MEDS: *HR* OxyCODONE Immed Rel 5 MG TABLET PO PRN ×3 (08:31→22:28)
[2019-07-31] MEDS: Insulin LISPRO 300 UNITS/3 ML VIAL SQ SCH ×4 (08:33→21:17)
[2019-07-31] MEDS: ceFAZolin 2,000 MG in 0.9 % Sodium Chloride 100 ML IVPB SCH ×3 (08:47→23:36)
[2019-07-31] MEDS ORDERED: Insulin DETEMIR 100 UNIT/ML X5UNITS SQ SCH (21:00)
[2019-08-01] MEDS ORDERED: Ethanol\\Acetic Acid\\Na Ace\\Ben 1,000 ML IRRIG.SOLN IR ONE ×2 (04:07)
[2019-08-01] MEDS ORDERED: *HR* Propofol 200 MG/20 ML VIAL IVP ONE ×2 (04:16→04:34)
[2019-08-01] MEDS ORDERED: *HR* Midazolam HCl 2 MG/2 ML VIAL ONE (04:16)
[2019-08-01] MEDS ORDERED: *HR* FentaNYL (PF) 100 MCG/2 ML VIAL ONE (04:16)
[2019-08-01 04:21] LABS: Hematocrit 32.6 % (37.5-50.1); Hemoglobin 10.4 g/dL (12.9-16.9); Mean Corpuscular HGB Conc 31.9 g/dL (31.6-35.5); Mean Corpuscular Hemoglobin 28.2 pg (28.0-33.3); Mean Corpuscular Volume 88.3 fL (83.0-100.0); Mean Platelet Volume 9.2 fL (9.4-12.4); Platelet Count 368 K/mcL (140-400); Red Blood Count 3.69 M/mcL (4.19-5.50); Red Cell Distribution Width 14.5 % (11.5-14.5); White Blood Count 10.6 K/mcL (4.3-11.1)
[2019-08-01] MEDS ORDERED: *HR* Rocuronium Bromide 50 MG/5 ML VIAL ONE (04:22)
[2019-08-01] MEDS ORDERED: Lidocaine -MPF 2% 2 ML VIAL ONE (04:22)
[2019-08-01] MEDS ORDERED: *HR* Succinylcholine 200 MG/10 ML VIAL IVP ONE (04:23)
[2019-08-01] MEDS ORDERED: Lidocaine HCL 4 ML Topical Solution (Laryng-O-Jet Kit Sterile Pak) TP ONE (04:26)
[2019-08-01] MEDS ORDERED: Tranexamic Acid 1,000 MG/10 ML VIAL ONE (04:33)
[2019-08-01 04:41] LABS: BUN/Creatinine Ratio 22 (6-26); Blood Urea Nitrogen 18 mg/dL (8-23); Carbon Dioxide 25 mEq/L (23-29); Chloride 102 mEq/L (98-107); Glucose 181 mg/dL (70-105); Magnesium 1.8 mg/dL (1.6-2.6); Osmolality,Calculated 286 (280-300); Phosphorous 3.9 mg/dL (2.7-4.5); Potassium 3.9 mEq/L (3.5-5.1); Sodium 135 mEq/L (136-145); eGFR For African Americans > 60 (> 60); eGFR For Non-African Americans > 60 (> 60)
[2019-08-01] MEDS ORDERED: Acetaminophen IV 1,000 MG/100 ML INFUS..BTL ONE (04:41)
[2019-08-01] MEDS ORDERED: *HR* HYDROmorphone PF 0.5 MG/0.5 ML SYRINGE IVP PRN (04:48)
[2019-08-01] MEDS ORDERED: *HR* Meperidine 25 MG/ML SYRINGE IVP PRN (04:48)
[2019-08-01] MEDS ORDERED: Ondansetron 4 MG/2 ML VIAL IVP ONE (04:48)
[2019-08-01] MEDS ORDERED: Lidocaine -MPF 4% 5 ML AMPUL ONE (04:50)
[2019-08-01] MEDS ORDERED: Vancomycin 1,000 MG VIAL ONE ×2 (06:33→06:38)
[2019-08-01] MEDS ORDERED: *HR* HYDROMORPHONE 2 MG/ML VIAL ONE (07:08)
[2019-08-01] MEDS: *HR* Heparin 5,000 UNIT/ML VIAL SQ SCH (07:25)
[2019-08-01] MEDS ORDERED: *HR* OxyCODONE Immed Rel 5 MG TABLET PO ONE (08:07)
[2019-08-01] MEDS ORDERED: Ondansetron 4 MG/2 ML VIAL IVP PRN (09:06)
[2019-08-01] MEDS ORDERED: MOM Conc 10 ML UD.LIQ PO PRN (09:06)
[2019-08-01] MEDS ORDERED: D5% in Water 1,000 ML IVC PRN (09:06)
[2019-08-01] MEDS ORDERED: Dextrose Gel 15 GM/37.5 ML TUBE PO PRN ×2 (09:06)
[2019-08-01] MEDS ORDERED: CeFAZolin Syr 3,000MG/30 ML 3,000 MG/30 ML SYRINGE IVPB SCH (09:06)
[2019-08-01] MEDS ORDERED: Naloxone 0.4 MG/ML INJ IVP PRN (09:06)
[2019-08-01] MEDS ORDERED: *HR* Dextrose 50 % in Water (Syg) 50 ML SYRINGE IVP PRN (09:06)
[2019-08-01] MEDS ORDERED: Sennosides 8.6 MG TABLET PO PRN (09:06)
[2019-08-01] MEDS ORDERED: *HR* Promethazine 25 MG/ML VIAL IVP PRN (09:06)
[2019-08-01] MEDS ORDERED: Ipratropium/Albuterol Neb 3 ML IH PRN (09:06)
[2019-08-01] MEDS: Ascorbic Acid 500 MG TABLET PO SCH ×2 (09:51→16:45)
[2019-08-01] MEDS: HYDROcodone BIT/Homatropine 5 MG TABLET PO PRN (09:51)
[2019-08-01] MEDS: Multivit/Ca/Min/Fe/FA 1 TAB TABLET PO SCH (09:51)
[2019-08-01] MEDS: Ringers Solution, Lactated 1,000 ML IVC SCH (10:02)
[2019-08-01] MEDS: ceFAZolin 2,000 MG in 0.9 % Sodium Chloride 100 ML IVPB SCH ×3 (11:09→23:20)
[2019-08-01] MEDS: Insulin LISPRO 300 UNITS/3 ML VIAL SQ SCH ×3 (11:12→20:53)
[2019-08-01] MEDS: *HR* OxyCODONE Immed Rel 5 MG TABLET PO PRN ×3 (14:54→23:43)
[2019-08-01] MEDS ORDERED: Insulin DETEMIR 100 UNIT/ML X5UNITS SQ SCH ×2 (21:00)
[2019-08-02] MEDS: Ringers Solution, Lactated 1,000 ML IVC SCH ×2 (01:46→16:10)
[2019-08-02] MEDS: *HR* OxyCODONE Immed Rel 5 MG TABLET PO PRN ×5 (04:13→22:20)
[2019-08-02] MEDS: Aspirin Enteric Coated 81 MG Tablet PO SCH ×2 (04:15→08:35)
[2019-08-02 05:36] LABS: Basophils % 0.3 %; Eosinophils # 0.2 K/mcL (0.0-0.6); Eosinophils % 1.3 %; Hematocrit 30.2 % (37.5-50.1); Hemoglobin 9.7 g/dL (12.9-16.9); Immature Granulocytes % 2.3 % (0-4); Lymphocytes # 1.2 K/mcL (0.6-4.6); Lymphocytes % 10.6 %; Mean Corpuscular HGB Conc 32.1 g/dL (31.6-35.5); Mean Corpuscular Hemoglobin 28.8 pg (28.0-33.3); Mean Corpuscular Volume 89.6 fL (83.0-100.0); Mean Platelet Volume 9.7 fL (9.4-12.4); Monocytes # 0.9 K/mcL (0.0-1.3); Monocytes % 7.4 %; Platelet Count 382 K/mcL (140-400); Red Blood Count 3.37 M/mcL (4.19-5.50); Red Cell Distribution Width 14.1 % (11.5-14.5); Segmented Neutrophils % 78.1 %; White Blood Count 11.6 K/mcL (4.3-11.1)
[2019-08-02 05:54] LABS: BUN/Creatinine Ratio 26 (6-26); Blood Urea Nitrogen 22 mg/dL (8-23); Calcium 7.7 mg/dL (8.6-10.3); Carbon Dioxide 25 mEq/L (23-29); Chloride 103 mEq/L (98-107); Glucose 206 mg/dL (70-105); Osmolality,Calculated 289 (280-300); Potassium 3.8 mEq/L (3.5-5.1); Sodium 135 mEq/L (136-145); eGFR For African Americans > 60 (> 60); eGFR For Non-African Americans > 60 (> 60)
[2019-08-02] MEDS: Acetaminophen 325 MG TABLET PO PRN (06:44)
[2019-08-02] MEDS: ceFAZolin 2,000 MG in 0.9 % Sodium Chloride 100 ML IVPB SCH ×2 (08:36→16:10)
[2019-08-02] MEDS: Multivit/Ca/Min/Fe/FA 1 TAB TABLET PO SCH (08:36)
[2019-08-02] MEDS: Ascorbic Acid 500 MG TABLET PO SCH ×2 (08:36→16:08)
[2019-08-02] MEDS: Insulin LISPRO 300 UNITS/3 ML VIAL SQ SCH ×4 (08:37→20:21)
[2019-08-02] MEDS: HYDROcodone BIT/Homatropine 5 MG TABLET PO PRN (16:17)
[2019-08-02] MEDS: *HR* Heparin 5,000 UNIT/ML VIAL SQ SCH (18:06)
[2019-08-02] MEDS: Insulin DETEMIR 100 UNIT/ML X5UNITS SQ SCH (20:21)
[2019-08-03] MEDS: ceFAZolin 2,000 MG in 0.9 % Sodium Chloride 100 ML IVPB SCH ×3 (01:12→15:45)
[2019-08-03] MEDS: HYDROcodone BIT/Homatropine 5 MG TABLET PO PRN (01:12)
[2019-08-03 02:19] LABS: Basophils # 0.1 K/mcL (0.0-0.2); Basophils % 0.6 %; Eosinophils # 0.4 K/mcL (0.0-0.6); Eosinophils % 4.7 %; Hematocrit 27.2 % (37.5-50.1); Hemoglobin 8.7 g/dL (12.9-16.9); Immature Granulocytes % 3.1 % (0-4); Lymphocytes # 1.2 K/mcL (0.6-4.6); Lymphocytes % 14.1 %; Mean Corpuscular Hemoglobin 29.4 pg (28.0-33.3); Mean Corpuscular Volume 91.9 fL (83.0-100.0); Mean Platelet Volume 9.4 fL (9.4-12.4); Monocytes # 0.7 K/mcL (0.0-1.3); Monocytes % 8.1 %; Neutrophils # 5.9 K/mcL (1.6-8.9); Platelet Count 370 K/mcL (140-400); Red Blood Count 2.96 M/mcL (4.19-5.50); Red Cell Distribution Width 14.4 % (11.5-14.5); Segmented Neutrophils % 69.4 %; White Blood Count 8.5 K/mcL (4.3-11.1)
[2019-08-03] MEDS: *HR* OxyCODONE Immed Rel 5 MG TABLET PO PRN ×5 (02:20→21:55)
[2019-08-03 02:36] LABS: BUN/Creatinine Ratio 23 (6-26); Blood Urea Nitrogen 19 mg/dL (8-23); Calcium 7.5 mg/dL (8.6-10.3); Carbon Dioxide 26 mEq/L (23-29); Chloride 104 mEq/L (98-107); Glucose 182 mg/dL (70-105); Osmolality,Calculated 287 (280-300); Sodium 135 mEq/L (136-145); eGFR For African Americans > 60 (> 60); eGFR For Non-African Americans > 60 (> 60)
[2019-08-03] MEDS: *HR* Heparin 5,000 UNIT/ML VIAL SQ SCH ×3 (05:41→21:57)
[2019-08-03] MEDS: Ringers Solution, Lactated 1,000 ML IVC SCH ×2 (06:20→22:08)
[2019-08-03] MEDS: Insulin LISPRO 300 UNITS/3 ML VIAL SQ SCH ×4 (07:48→21:57)
[2019-08-03] MEDS ORDERED: *HR* Midazolam HCl 5 MG/5 ML VIAL IVP PRN (08:19)
[2019-08-03] MEDS ORDERED: *HR* FentaNYL (PF) 100 MCG/2 ML VIAL IVP PRN (08:19)
[2019-08-03] MEDS ORDERED: Lidocaine Viscous Oral Soln 15 ML SOLUTION MM PRN (08:19)
[2019-08-03] MEDS ORDERED: 0.9 % Sodium Chloride 500 ML IVC ONE (08:19)
[2019-08-03 08:56] LABS: Albumin 2.4 g/dL (3.5-5.7)
[2019-08-03] MEDS: Aspirin Enteric Coated 81 MG Tablet PO SCH (10:54)
[2019-08-03] MEDS: Multivit/Ca/Min/Fe/FA 1 TAB TABLET PO SCH (10:55)
[2019-08-03] MEDS: Sennosides/Docusate Sodium TABLET PO SCH ×2 (10:55→21:56)
[2019-08-03] MEDS: Ascorbic Acid 500 MG TABLET PO SCH ×2 (10:55→15:47)
[2019-08-03] MEDS: Insulin DETEMIR 100 UNIT/ML X5UNITS SQ SCH (21:56)
[2019-08-04] MEDS: ceFAZolin 2,000 MG in 0.9 % Sodium Chloride 100 ML IVPB SCH ×4 (00:06→23:13)
[2019-08-04] MEDS: HYDROcodone BIT/Homatropine 5 MG TABLET PO PRN ×3 (00:08→17:07)
[2019-08-04] MEDS: *HR* Heparin 5,000 UNIT/ML VIAL SQ SCH ×3 (06:03→20:03)
[2019-08-04] MEDS: *HR* OxyCODONE Immed Rel 5 MG TABLET PO PRN ×4 (06:04→23:58)
[2019-08-04] MEDS: Insulin LISPRO 300 UNITS/3 ML VIAL SQ SCH ×5 (08:00→20:03)
[2019-08-04] MEDS: Ascorbic Acid 500 MG TABLET PO SCH ×2 (08:09→17:07)
[2019-08-04] MEDS: Sennosides/Docusate Sodium TABLET PO SCH ×2 (08:09→20:02)
[2019-08-04] MEDS: Multivit/Ca/Min/Fe/FA 1 TAB TABLET PO SCH (08:09)
[2019-08-04] MEDS: Aspirin Enteric Coated 81 MG Tablet PO SCH (08:10)
[2019-08-04 08:59] LABS: Hemoglobin 9.5 g/dL (12.9-16.9); Mean Corpuscular HGB Conc 31.7 g/dL (31.6-35.5); Mean Corpuscular Hemoglobin 29.2 pg (28.0-33.3); Mean Corpuscular Volume 92.3 fL (83.0-100.0); Mean Platelet Volume 9.1 fL (9.4-12.4); Platelet Count 411 K/mcL (140-400); Red Blood Count 3.25 M/mcL (4.19-5.50); Red Cell Distribution Width 14.3 % (11.5-14.5); White Blood Count 6.9 K/mcL (4.3-11.1)
[2019-08-04 09:04] LABS: BUN/Creatinine Ratio 17 (6-26); Blood Urea Nitrogen 12 mg/dL (8-23); Calcium 7.9 mg/dL (8.6-10.3); Carbon Dioxide 29 mEq/L (23-29); Chloride 102 mEq/L (98-107); Glucose 159 mg/dL (70-105); Osmolality,Calculated 285 (280-300); Sodium 136 mEq/L (136-145); eGFR For African Americans > 60 (> 60); eGFR For Non-African Americans > 60 (> 60)
[2019-08-04] MEDS: Ringers Solution, Lactated 1,000 ML IVC SCH (11:57)
[2019-08-04] MEDS: Insulin DETEMIR 100 UNIT/ML X5UNITS SQ SCH (20:03)
[2019-08-05] MEDS: Ringers Solution, Lactated 1,000 ML IVC SCH ×2 (03:09→21:25)
[2019-08-05] MEDS: *HR* OxyCODONE Immed Rel 5 MG TABLET PO PRN ×2 (04:03→09:27)
[2019-08-05 05:07] LABS: Hematocrit 29.5 % (37.5-50.1); Hemoglobin 9.4 g/dL (12.9-16.9); Mean Corpuscular HGB Conc 31.9 g/dL (31.6-35.5); Mean Corpuscular Hemoglobin 29.4 pg (28.0-33.3); Mean Corpuscular Volume 92.2 fL (83.0-100.0); Mean Platelet Volume 9.1 fL (9.4-12.4); Platelet Count 406 K/mcL (140-400); Red Cell Distribution Width 14.3 % (11.5-14.5); White Blood Count 7.3 K/mcL (4.3-11.1)
[2019-08-05] MEDS: *HR* Heparin 5,000 UNIT/ML VIAL SQ SCH ×3 (05:25→20:18)
[2019-08-05 05:32] LABS: BUN/Creatinine Ratio 18 (6-26); Blood Urea Nitrogen 13 mg/dL (8-23); Calcium 7.9 mg/dL (8.6-10.3); Carbon Dioxide 27 mEq/L (23-29); Chloride 103 mEq/L (98-107); Glucose 126 mg/dL (70-105); Osmolality,Calculated 286 (280-300); Potassium 3.8 mEq/L (3.5-5.1); Sodium 137 mEq/L (136-145); eGFR For African Americans > 60 (> 60); eGFR For Non-African Americans > 60 (> 60)
[2019-08-05] MEDS: Sennosides/Docusate Sodium TABLET PO SCH ×2 (09:27→20:18)
[2019-08-05] MEDS: Multivit/Ca/Min/Fe/FA 1 TAB TABLET PO SCH (09:27)
[2019-08-05] MEDS: Aspirin Enteric Coated 81 MG Tablet PO SCH (09:27)
[2019-08-05] MEDS: Ascorbic Acid 500 MG TABLET PO SCH ×2 (09:27→17:23)
[2019-08-05] MEDS: ceFAZolin 2,000 MG in 0.9 % Sodium Chloride 100 ML IVPB SCH ×3 (09:28→23:26)
[2019-08-05] MEDS: Insulin LISPRO 300 UNITS/3 ML VIAL SQ SCH ×4 (09:29→22:09)
[2019-08-05] MEDS: Acetaminophen 325 MG TABLET PO PRN ×2 (13:11→20:17)
[2019-08-05] MEDS: Metoprolol XL (24 HR) Succ 25 MG TAB.ER.24H PO SCH (13:12)
[2019-08-05] MEDS: Insulin DETEMIR 100 UNIT/ML X5UNITS SQ SCH (20:17)
[2019-08-06] MEDS: *HR* OxyCODONE Immed Rel 5 MG TABLET PO PRN ×4 (02:23→21:16)
[2019-08-06] MEDS: *HR* Heparin 5,000 UNIT/ML VIAL SQ SCH ×3 (05:27→21:16)
[2019-08-06 07:55] LABS: Hematocrit 30.7 % (37.5-50.1); Hemoglobin 9.7 g/dL (12.9-16.9); Mean Corpuscular HGB Conc 31.6 g/dL (31.6-35.5); Mean Corpuscular Hemoglobin 28.8 pg (28.0-33.3); Mean Corpuscular Volume 91.1 fL (83.0-100.0); Mean Platelet Volume 8.7 fL (9.4-12.4); Platelet Count 438 K/mcL (140-400); Red Blood Count 3.37 M/mcL (4.19-5.50); Red Cell Distribution Width 14.6 % (11.5-14.5)
[2019-08-06 08:12] LABS: BUN/Creatinine Ratio 17 (6-26); Blood Urea Nitrogen 11 mg/dL (8-23); Calcium 8.1 mg/dL (8.6-10.3); Carbon Dioxide 27 mEq/L (23-29); Chloride 104 mEq/L (98-107); Glucose 126 mg/dL (70-105); Osmolality,Calculated 285 (280-300); Potassium 4.1 mEq/L (3.5-5.1); Sodium 137 mEq/L (136-145); eGFR For African Americans > 60 (> 60); eGFR For Non-African Americans > 60 (> 60)
[2019-08-06] MEDS: ceFAZolin 2,000 MG in 0.9 % Sodium Chloride 100 ML IVPB SCH ×3 (08:51→23:26)
[2019-08-06] MEDS: Ascorbic Acid 500 MG TABLET PO SCH ×2 (08:55→16:47)
[2019-08-06] MEDS: Multivit/Ca/Min/Fe/FA 1 TAB TABLET PO SCH (08:57)
[2019-08-06] MEDS: Metoprolol XL (24 HR) Succ 25 MG TAB.ER.24H PO SCH (08:58)
[2019-08-06] MEDS: Aspirin Enteric Coated 81 MG Tablet PO SCH (08:58)
[2019-08-06] MEDS: Sennosides/Docusate Sodium TABLET PO SCH ×2 (08:59→21:16)
[2019-08-06] MEDS: Insulin LISPRO 300 UNITS/3 ML VIAL SQ SCH ×4 (09:08→19:36)
[2019-08-06 16:23] LABS: INR 1.2; Prothrombin Time 13.3 Seconds (9.4-12.1)
[2019-08-06] MEDS: *HR* Enoxaparin 150 MG/ML SYRINGE SQ SCH (16:53)
[2019-08-06] MEDS: *HR* Warfarin 5 MG TABLET PO ONE ×2 (17:21→17:22)
[2019-08-06] MEDS: Warfarin perPT PO SCH (19:15)
[2019-08-06] MEDS: Insulin DETEMIR 100 UNIT/ML X5UNITS SQ SCH (21:16)
[2019-08-07 05:03] LABS: INR 1.2; Prothrombin Time 13.3 Seconds (9.4-12.1)
[2019-08-07] MEDS: *HR* Enoxaparin 150 MG/ML SYRINGE SQ SCH ×2 (05:10→17:24)
[2019-08-07] MEDS: *HR* OxyCODONE Immed Rel 5 MG TABLET PO PRN ×4 (05:11→22:16)
[2019-08-07 07:58] LABS: Hematocrit 29.9 % (37.5-50.1); Hemoglobin 9.6 g/dL (12.9-16.9); Mean Corpuscular HGB Conc 32.1 g/dL (31.6-35.5); Mean Corpuscular Hemoglobin 29.6 pg (28.0-33.3); Mean Corpuscular Volume 92.3 fL (83.0-100.0); Mean Platelet Volume 8.7 fL (9.4-12.4); Platelet Count 468 K/mcL (140-400); Red Blood Count 3.24 M/mcL (4.19-5.50); Red Cell Distribution Width 14.6 % (11.5-14.5); White Blood Count 6.1 K/mcL (4.3-11.1)
[2019-08-07] MEDS: ceFAZolin 2,000 MG in 0.9 % Sodium Chloride 100 ML IVPB SCH ×3 (08:07→23:55)
[2019-08-07] MEDS: Sennosides/Docusate Sodium TABLET PO SCH ×2 (08:11→20:29)
[2019-08-07] MEDS: Acetaminophen 325 MG TABLET PO PRN (08:11)
[2019-08-07] MEDS: Metoprolol XL (24 HR) Succ 25 MG TAB.ER.24H PO SCH (08:12)
[2019-08-07] MEDS: Multivit/Ca/Min/Fe/FA 1 TAB TABLET PO SCH (08:12)
[2019-08-07] MEDS: Ascorbic Acid 500 MG TABLET PO SCH ×2 (08:12→17:21)
[2019-08-07] MEDS: Insulin LISPRO 300 UNITS/3 ML VIAL SQ SCH ×4 (08:13→22:22)
[2019-08-07 08:17] LABS: BUN/Creatinine Ratio 18 (6-26); Blood Urea Nitrogen 13 mg/dL (8-23); Carbon Dioxide 27 mEq/L (23-29); Chloride 105 mEq/L (98-107); Glucose 137 mg/dL (70-105); Osmolality,Calculated 288 (280-300); Sodium 138 mEq/L (136-145); eGFR For African Americans > 60 (> 60); eGFR For Non-African Americans > 60 (> 60)
[2019-08-07] MEDS: Warfarin perPT PO SCH (17:25)
[2019-08-07] MEDS: DiphenhydraMINE CREAM 28.4 GM TUBE TP PRN ×2 (17:26→22:09)
[2019-08-07] MEDS ORDERED: *HR* Warfarin 5 MG TABLET PO ONE (18:00)
[2019-08-07] MEDS: Ringers Solution, Lactated 1,000 ML IVC SCH (20:27)
[2019-08-07] MEDS: Insulin DETEMIR 100 UNIT/ML X5UNITS SQ SCH (20:29)
[2019-08-08] MEDS: HYDROcodone BIT/Homatropine 5 MG TABLET PO PRN ×2 (03:49→09:13)
[2019-08-08] MEDS: Ringers Solution, Lactated 1,000 ML IVC SCH (04:54)
[2019-08-08] MEDS: *HR* Enoxaparin 150 MG/ML SYRINGE SQ SCH (06:03)
[2019-08-08 06:06] LABS: INR 1.2; Prothrombin Time 13.7 Seconds (9.4-12.1)
[2019-08-08] MEDS: *HR* OxyCODONE Immed Rel 5 MG TABLET PO PRN ×2 (06:50→12:36)
[2019-08-08] MEDS: Metoprolol XL (24 HR) Succ 25 MG TAB.ER.24H PO SCH (09:07)
[2019-08-08] MEDS: Ascorbic Acid 500 MG TABLET PO SCH (09:07)
[2019-08-08] MEDS: Sennosides/Docusate Sodium TABLET PO SCH (09:07)
[2019-08-08] MEDS: Multivit/Ca/Min/Fe/FA 1 TAB TABLET PO SCH (09:07)
[2019-08-08] MEDS: Insulin LISPRO 300 UNITS/3 ML VIAL SQ SCH ×2 (09:07→12:28)
[2019-08-08] MEDS: ceFAZolin 2,000 MG in 0.9 % Sodium Chloride 100 ML IVPB SCH (09:13)
[2019-08-08 11:31] VITALS: BP 119/72
[2019-08-08] MEDS ORDERED: *HR* Warfarin 7.5 MG TABLET PO ONE (18:00)
== END 2019-08-08 13:07 | DRG 466 ==
LOC: 3NENU → SUATTDRO 20:13
PROVIDERS: ADMIT Internal Medicine; ATTEND Internal Medicine